=== PATIENT | female | born 1990 | race American Indian/Alaskan Native ===

== ENCOUNTER 2022-08-03 19:03 | Inpatient (IN) | payer MEDICAID, OTHER ==
[2022-08-03] MEDS ORDERED: OXYTOCIN 10 UNIT/1 ML INJ IM PRN (19:52)
[2022-08-03] MEDS ORDERED: ACETAMINOPHEN 325 MG TAB PO PRN ×2 (19:52→20:46)
[2022-08-03] MEDS ORDERED: fentaNYL 100 MCG/2 ML INJ IV PRN (19:52)
[2022-08-03] MEDS ORDERED: TERBUTALINE 1 MG/1 ML INJ SUB-Q PRN (19:52)
[2022-08-03] MEDS ORDERED: CARBOPROST TROMETHAMINE 250 MCG/1 ML INJ IM PRN (19:52)
[2022-08-03] MEDS ORDERED: BUTORPHANOL 2 MG/1 ML INJ IV PRN (19:52)
[2022-08-03] MEDS ORDERED: METHYLERGONOVINE MALEATE 0.2 MG/ML VIAL IM PRN (19:52)
--- NOTE | 2022-08-03 19:52 | History and Physical Report ---
History of Present Illness Date of examination: 08/03/22 Date of admission: 08/03/2022 Chief complaint: Contractions History of present illness: 31 y/o at 39-1/7 weeks presents to OB triage reporting contractions every 3-5 minutes. There is no vaginal bleeding. There is questionable leakage of fluid. There is good movement. In OB triage, cervical exam went from 5 cm to 10 cm. The patient is admitted to Labor and Delivery for expectant management of a precipitous vaginal delivery, Past History Past Medical History: asthma Past Surgical History: no surgical history Family/Genetic History: none Social history: no significant social history - Obstetrical History Expected Date of Delivery: 08/09/22 Actual Gestation: 39 Week(s) 1 Day(s) : 3 Para: 2 Hx # Term Pregnancies: 2 Number of Pregnancies: 0 Spontaneous Abortions: 1 Induced : 0 Number of Living Children: 2 Medications and Allergies Allergies Allergy/AdvReac Type Severity Reaction Status Date / Time ibuprofen [From Motrin] Allergy Hives Verified 01/18/15 07:23 Home Medications Medication Instructions Recorded Confirmed Last Taken Type No Known Home Medications [No 01/18/15 01/18/15 Unknown History Reported Home Medications] Review of Systems All systems: negative - Physical Exam Breasts: Positive: normal Cardiovascular: Regular rate Lungs: Positive: Normal air movement Abdomen: Positive: normal appearance Genitourinary (Female): Positive: normal external genitalia, normal perenium Vulva: both: normal Vagina: Positive: normal moisture Uterus: Positive: enlarged Adnexa: both: normal Anus/Rectum: Positive: normal perianal skin Extremities: Positive: normal Deep Tendon Reflex Grade: Normal +2 - Obstetrical FHR: category 1 Uterine Contraction Monitor Mode: External Cervical Dilatation: 10 Cervical Effacement Percentage: 100 station: +2 Uterine Contraction Frequency (min): 5 Uterine Contraction Pattern: Regular Results Result Diagrams: 08/03/22 20:24 All other labs normal. Ultrasound: pending Assessment and Plan - Patient Problems (1) 39 weeks gestation of Current Visit: Yes Status: Acute Plan to address problem: care is up-to-date at [facility]. (2) Active labor at term Current Visit: Yes Status: Acute Plan to address problem: This patient is in active labor. Admit to Labor and Delivery. I expect a precipitous vaginal delivery.
[2022-08-03] MEDS ORDERED: OXYTOCIN DRIP 30 UNITS/500 ML BAG IV SCH ×2 (20:00)
[2022-08-03] MEDS ORDERED: LACTATED RINGERS 1,000 ML IV SCH (20:00)
[2022-08-03] MEDS ORDERED: fentaNYL 100 MCG/2 ML INJ IV ONE (20:05)
[2022-08-03 20:38] LABS: Hematocrit 40.2 % (30.3-42.9); Hemoglobin 13.6 gm/dl (10.1-14.3); Mean Corpuscular HGB Conc 34 % (30-34); Mean Corpuscular Volume 84 fl (79-97); Platelet Count 398 K/mm3 (140-440); Red Blood Count 4.78 M/mm3 (3.65-5.03); Red Cell Distribution Width 15.9 % (13.2-15.2)
--- NOTE | 2022-08-03 20:45 | Procedure Note ---
OB Delivery Note - Delivery Date of Delivery: 08/03/22 Surgeon: OLIVE JOHNSTON Estimated blood loss: other (50 cc) - Vaginal Delivery presentation: vertex Delivery position: OA Delivery induction: none Delivery augmentation: rupture of membranes Delivery monitor: external FHT, external uterine Route of delivery: Delivery placenta: spontaneous Delivery cord: nuchal cord Delivery laceration: none Anesthesia: intravenous Delivery comments: of a viable female 6#14 oz (3113gms) on 08/03/2022 @ 2020 over intact perineum. Loose nuchal cord present and baby delivered through the cord. Placenta delivered 3VCI. 8/9. QBL 50cc - A at 1 minute: 8 at 5 minutes: 9 Infant Gender: Female (6# 14 oz)
[2022-08-03] MEDS ORDERED: diphenhydrAMINE 25 MG CAP PO PRN (20:46)
[2022-08-03] MEDS ORDERED: MAGNESIUM HYDROXIDE (MOM) ORAL LIQD UDC PO PRN (20:46)
[2022-08-03] MEDS ORDERED: WITCH HAZEL/ GLYCERIN PAD TP PRN (20:46)
[2022-08-03] MEDS ORDERED: LANOLIN/ZINC/DIMETHICONE (LANSINOH) 7 GM TP PRN (20:46)
[2022-08-03] MEDS: oxyCODONE /ACETAMINOPHEN 5-325MG TAB PO PRN (21:51)
[2022-08-03] MEDS: IBUPROFEN 800 MG TAB PO SCH (23:50)
[2022-08-04] MEDS: IBUPROFEN 800 MG TAB PO SCH ×3 (03:00→23:26)
[2022-08-04 04:10] LABS: Color,Urine Red (Yellow)
[2022-08-04 04:24] LABS: Amphetamine Screen,Urine Negative; Benzodiazepines Screen,Urine Negative; Cannabinoid Screen,Urine Negative; Cocaine Screen,Urine Negative; Methadone Screen,Urine Negative; Opiate Screen,Urine Negative
--- NOTE | 2022-08-04 09:03 | Progress Note ---
Assessment and Plan A: PPD1 Stable P: Continue PP care per unit protocol Anticipate discharge home in 24hrs Subjective - Subjective Date of service: 08/04/22 Principal diagnosis: contractions Patient reports: appetite normal, voiding normally, pain well controlled, ambulating normally : doing well Objective - Vital Signs Latest vital signs: Vital Signs Temp Pulse Resp BP BP Pulse Ox Pulse Ox 08/04/22 08:23 98 08/04/22 08:00 98 F 74 20 103/65 08/04/22 05:13 97.8 F 79 18 99/62 97 08/03/22 23:50 98.4 F 103 H 18 109/70 97 97 08/03/22 23:33 92 H 97 08/03/22 23:28 102 H 97 08/03/22 23:23 89 97 08/03/22 23:18 94 H 98 08/03/22 23:14 88 132/73 08/03/22 23:13 105 H 98 08/03/22 23:05 89 08/03/22 23:00 85 08/03/22 22:59 62 83 L 08/03/22 22:54 95 H 99 08/03/22 22:49 96 H 99 08/03/22 22:44 100 H 99 08/03/22 22:43 92 H 92 08/03/22 22:39 97 H 98 08/03/22 22:37 84 114/68 08/03/22 22:34 84 99 08/03/22 22:29 83 98 08/03/22 22:24 86 99 08/03/22 22:19 82 99 08/03/22 22:14 88 100 08/03/22 22:09 81 100 08/03/22 22:04 87 99 08/03/22 21:59 93 H 100 08/03/22 21:56 81 121/73 08/03/22 21:54 97 H 99 08/03/22 20:45 97.7 F 16 120/70 100 Intake and Output 08/03/22 08/04/22 08/04/22 23:59 07:59 15:59 Intake Total 240 Output Total 850 Balance -610 Intake: Intake, Free Water 240 Output: Urine 850 Void 850 Other: Total, Output Amount 600 # Voids Void 1 1 Weight 196 lb Estimated Blood Loss 50 - Exam Breasts: Present: normal Cardiovascular: Present: Regular rate Lungs: Present: Clear to auscultation, Normal air movement Abdomen: Present: normal appearance, soft Uterus: Present: firm, tenderness (slightly), fundal height below umbilicus Deep Tendon Reflex Grade: Normal +2 - Labs Labs: Abnormal lab results 08/03/22 08/03/22 Range/Units 20:00 20:24 WBC 19.9 H (4.5-11.0) K/mm3 RDW 15.9 H (13.2-15.2) % Membranes Rupture Positive A (Negative)
--- NOTE | 2022-08-04 09:08 | Discharge Summary ---
Providers - Providers Date of Admission: 08/03/22 19:52 Date of discharge: 08/05/22 Attending physician: OANH GARNER MD Primary care physician: OANH GARNER MD Hospitalization Reason for admission: active labor Delivery: Episiotomy: none Laceration: none Other procedures: none complications: none Discharge diagnosis: IUP at term delivered [place] baby: female Condition at discharge: Good Disposition: 01 HOME / SELF CARE / HOMELESS Plan - Provider Discharge Summary Activity: no sex for 6 weeks, no heavy lifting 4 weeks, no strenuous exercise Diet: routine Instructions: routine Additional instructions: [] Smoking cessation referral if applicable(refer to patient education folder for contact #) [] Refer to [facility] Booklet Call your doctor immediately for: * Fever > 100.5 * Heavy vaginal bleeding ( >1 pad per hour) * Severe persistent headache * Shortness of breath * Reddened, hot, painful area to leg or breast * Drainage or odor from incision. * - Follow up plan Follow up: OANH GARNER MD [Primary Care Provider] - 6 Weeks (Return to [facility] for preop of BTL)
[2022-08-04] MEDS: oxyCODONE /ACETAMINOPHEN 5-325MG TAB PO PRN (09:20)
[2022-08-04 15:29] LABS: Basophils % (Auto) 0.3 % (0.0-1.8); Eosinophils # (Auto) 0.1 K/mm3 (0.0-0.4); Eosinophils % (Auto) 0.6 % (0.0-4.3); Hematocrit 32.7 % (30.3-42.9); Hemoglobin 10.4 gm/dl (10.1-14.3); Lymphocytes # (Auto) 2.6 K/mm3 (1.2-5.4); Mean Corpuscular HGB Conc 32 % (30-34); Mean Corpuscular Volume 86 fl (79-97); Monocytes # (Auto) 1.4 K/mm3 (0.0-0.8); Monocytes % (Auto) 7.8 % (0.0-7.3); Platelet Count 302 K/mm3 (140-440); Red Blood Count 3.79 M/mm3 (3.65-5.03); Red Cell Distribution Width 16.2 % (13.2-15.2)
[2022-08-04 15:44] LABS: Hepatitis C Virus Antibody Non-Reactive (NonReactive)
[2022-08-05] MEDS: oxyCODONE /ACETAMINOPHEN 5-325MG TAB PO PRN (01:18)
[2022-08-05 12:14] VITALS: BP 99/66
== END 2022-08-05 13:35 | disposition home or self-care (01) | DRG 775 ==
LOC: TRG 19:03 → APU 19:04 → LD 19:52 → TRG 19:52 → OB 23:33
PROVIDERS: ADMIT Obstetrics & Gynecology Gynecology; ATTEND Obstetrics & Gynecology Gynecology
PROC: 10E0XZZ Delivery of Products of Conception, External Approach (ICD-10-PCS; principal; 2022-08-03)
DX: O69.81X0 Labor and delivery complicated by cord around neck, without compression, not applicable or unspecified (principal); Z37.0 Single live birth; Z3A.39 39 weeks gestation of pregnancy; Z20.822 Contact with and (suspected) exposure to COVID-19; O99.52 Diseases of the respiratory system complicating childbirth
CPT/HCPCS: 36415; 80307; 81001; 84112; 85025; 85027; 86592; 86706; 86762; 86803; 86850; 86900; 86901; 87806; G0378; J2590; J3010; U0003